=== PATIENT | male | born 1950 | race Caucasian/White ===

== ENCOUNTER 2017-06-29 22:14 | Emergency (ER) | payer OTHER ==
[2017-06-29 22:25] VITALS: BP 175/97; PULSE 95; TEMP 97.4; BMI 29.9
--- NOTE | 2017-06-30 00:26 | PDOC ---
History of Present Illness - General History Source: Patient Exam Limitations: No Limitations - History of Present Illness Initial Comments: 06/30/17 00:41 The patient is a 67 year old male, with a significant past medical history of major depression (taking lexapro and klonopin), hypothyroidism (taking Synthroid ), and peripheral neuropathy, who presents to the emergency department with decreased urinary frequency since March with sudden onset of high blood pressure, palpitations, rapid breathing, and body shakes earlier this evening. The patient states he had a UTI in March, originally prescribed ciprofloxacin which was reportedly changes to ciprofloxacin by the time he arrived at the pharmacy because the first interacts with some of my daily medications. The patient states he took the course of antibiotics, however, never felt like the UTI went away. He states he has been urinating significantly less than normal since the UTI onset. The patients at bedside states the patient googled his symptoms earlier this evening and developed his rapid breathing, shaking, and palpitations. The patient denies chest pain, shortness of breath, headache and dizziness. The patient denies fever, chills, nausea, vomit, diarrhea and constipation. The patient denies dysuria, urgency and hematuria. Allergies: penicillins, scopolamine, vancomycin <Mary Mills - Last Filed: 06/30/17 00:41> <Gail Lopez - Last Filed: 06/30/17 03:13> - General Chief Complaint: Respiratory Stated Complaint: PAIN Time Seen by Provider: 06/29/17 23:46 Past History <Mary Mills - Last Filed: 06/30/17 00:41> - Past Medical History COPD: No Hypercholesterolemia: Yes Other medical history: Peripheral neuropathy - Suicide/Smoking/Psychosocial Hx Smoking History: Never smoked Have you smoked in the past 12 months: No Information on smoking cessation initiated: No Hx Alcohol Use: No Drug/Substance Use Hx: No Substance Use Type: None <Gail Lopez - Last Filed: 06/30/17 03:13> - Past Medical History Allergies/Adverse Reactions: Allergies Allergy/AdvReac Type Severity Reaction Status Date / Time Penicillins Allergy Severe Hives Verified 06/29/17 22:21 scopolamine Allergy Severe Hives Verified 06/29/17 22:21 vancomycin Allergy Severe Hives Verified 06/29/17 22:26 Home Medications: Ambulatory Orders Lidocaine 2% Viscous Oral/Top [Xylocaine 2% Viscous] 10 ml MM ONCE PRN #1 bottle 06/30/17 Sulfamethoxazole/Trimethoprim [Bactrim Ds Tablet] 1 each PO BID #10 tablet 06/30 Review of Systems - Review of Systems Able to Perform ROS?: Yes Comments:: 06/30/17 00:42 CONSTITUTIONAL: Absent: fever, chills, diaphoresis, generalized weakness, malaise, loss of appetite HEENT: Absent: rhinorrhea, nasal congestion, throat pain, throat swelling, difficulty swallowing, mouth swelling, ear pain, eye pain, visual Changes CARDIOVASCULAR: (+) palpitations, Absent: chest pain, syncope, irregular heart rate, lightheadedness, peripheral edema RESPIRATORY: (+) rapid breathing. Absent: cough, dyspnea with exertion, orthopnea, wheezing, stridor, hemoptysis GASTROINTESTINAL: Absent: abdominal pain, abdominal distension, nausea, vomiting, diarrhea, constipation, melena, hematochezia GENITOURINARY: (+) decreased urinary frequency, Absent: dysuria, urgency, hesitancy, hematuria , flank pain, genital pain MUSCULOSKELETAL: (+) body shaking. Absent: myalgia, arthralgia, joint swelling SKIN: Absent: rash, itching, pallor HEMATOLOGIC/IMMUNOLOGIC: Absent: easy bleeding, easy bruising, lymphadenopathy, frequent infections ENDOCRINE: Absent: unexplained weight gain, unexplained weight loss, heat intolerance, cold intolerance NEUROLOGIC: Absent: headache, focal weakness or paresthesias, dizziness, unsteady gait, seizure, mental status changes, bladder or bowel incontinence PSYCHIATRIC: Absent: anxiety, depression, suicidal or homicidal ideation, hallucinations. <Mary Mills - Last Filed: 06/30/17 00:41> *Physical Exam - Vital Signs Last Vital Signs Temp Pulse Resp BP Pulse Ox 97.4 F L 95 H 18 175/97 98 06/29/17 22:22 06/29/17 22:22 06/29/17 22:22 06/29/17 22:22 06/29/17 22:22 - Physical Exam Comments: 06/30/17 00:44 GENERAL: Well developed, well nourished. Awake and alert. No acute distress. HEENT: Normocephalic, atraumatic. PERRLA, EOMI. No conjunctival pallor. Sclera are non- icteric. Moist mucous membranes. Oropharynx is clear. NECK: Supple. Full ROM. No JVD. Carotid pulses 2+ and symmetric, without bruits. No thyromegaly. No lymphadenopathy. CARDIOVASCULAR: Regular rate and rhythm. No murmurs, rubs, or gallops. Distal pulses are 2+ and symmetric. PULMONARY: No evidence of respiratory distress. Lungs clear to auscultation bilaterally. No wheezing, rales or rhonchi. ABDOMINAL: Soft. Non-tender. Non-distended. No rebound or guarding. No organomegaly. Normoactive bowel sounds. MUSCULOSKELETAL Normal range of motion at all joints. No bony deformities or tenderness. No CVA tenderness. EXTREMITIES: No cyanosis. No clubbing. No edema. No calf tenderness. SKIN: Warm and dry. Normal capillary refill. No rashes. No jaundice. NEUROLOGICAL: Alert, awake, appropriate. Cranial nerves 2-12 intact. Normoreflexic in the upper and lower extremities. Normal speech. Toes are down-going bilaterally. Gait is normal without ataxia. PSYCHIATRIC: Cooperative. Good eye contact. Appropriate mood and affect. <Mary Mills - Last Filed: 06/30/17 00:41> - Vital Signs Last Vital Signs Temp Pulse Resp BP Pulse Ox 97.4 F L 95 H 18 175/97 98 06/29/17 22:22 06/29/17 22:22 06/29/17 22:22 06/29/17 22:22 06/29/17 22:22 <Gail Lopez - Last Filed: 06/30/17 03:13> ED Treatment Course - LABORATORY CBC & Chemistry Diagram: 06/30/17 00:37 06/30/17 00:37 <Gail Lopez - Last Filed: 06/30/17 03:13> Medical Decision Making - Medical Decision Making 06/30/17 02:21 67 yo male experienced some shaking earlier today and googled it and found it could be related to sepsis. He has had UTI in the past and he feels he may have one at this time PMH peripheral neuropathy ,major depression NO FEVER ,CHILLS,VOMTING ,NO CHEST PAIN ,NO COUGH OR ABD PAIN cbc wnl chemistries htb=584 ekg nsr @ 76 bpm UA pending <Gail Lopez - Last Filed: 06/30/17 03:13> *DC/Admit/Observation/Transfer - Attestations Scribe Attestion: 06/30/17 00:44 Documentation prepared by Mary Mills, acting as medical artist for Gail Lopez MD <Mary Mills - Last Filed: 06/30/17 00:41> <Gail Lopez - Last Filed: 06/30/17 03:13> Diagnosis at time of Disposition: Urinary dribbling Peripheral neuropathy Qualifiers: Peripheral neuropathy type: polyneuropathy, unspecified Qualified Code(s): G62.9 - Polyneuropathy, unspecified UTI (urinary tract infection) Qualifiers: Urinary tract infection type: site unspecified Hematuria presence: without hematuria Qualified Code(s): N39.0 - Urinary tract infection, site not specified - Discharge Dispostion Disposition: HOME Condition at time of disposition: Stable - Prescriptions Prescriptions: Lidocaine 2% Viscous Oral/Top [Xylocaine 2% Viscous] 10 ml MM ONCE PRN #1 bottle PRN Reason: oral ULCERS Sulfamethoxazole/Trimethoprim [Bactrim Ds Tablet] 1 each PO BID #10 tablet - Referrals Referrals: Juan David Leong [Primary Care Provider] - - Patient Instructions Printed Discharge Instructions: DI for Urinary Tract Infection (UTI) Additional Instructions: please follow up with your regular physician melter supervisor your prescriptions at your pharmacy - Post Discharge Activity
[2017-06-30 00:53] LABS: BASO % 0.3 % (0-2.0); EOS % 0.9 % (0-4.5); HEMATOCRIT 38.5 % (35.4-49); HEMOGLOBIN 13.1 GM/dL (11.7-16.9); LYMPH % 25.4 % (8-40); MCH 29.9 pg (25.7-33.7); MCHC 33.9 g/dl (32.0-35.9); MEAN CELL VOLUME 88.2 fl (80-96); MEAN PLT VOLUME 8.3 fl (7.5-11.1); MONO % 7.8 % (3.8-10.2); NEUT % 65.6 % (42.8-82.8); PLATELET COUNT 251 K/MM3 (134-434); RBC 4.37 M/mm3 (4.00-5.60); WHITE BLOOD COUNT 8.4 K/mm3 (4.0-10.0)
[2017-06-30 01:23] LABS: ALBUMIN 3.8 g/dl (3.4-5.0); ALK PHOS 41 U/L (45-117); ANION GAP 8 (8-16); BILIRUBIN,TOTAL 0.3 mg/dL (0.2-1.0); BLOOD UREA NITROGEN 18 mg/dL (7-18); CALCIUM 9.2 mg/dL (8.5-10.1); CHLORIDE 109 mmol/L (98-107); CO2 24 mmol/L (21-32); CREATININE 1.4 mg/dL (0.7-1.3); GLUCOSE,RANDOM 116 mg/dL (74-106); POTASSIUM 3.9 mmol/L (3.5-5.1); SGOT/AST 29 U/L (15-37); SGPT/ALT 33 U/L (12-78); SODIUM 141 mmol/L (136-145); TOT PROT 9.6 g/dl (6.4-8.2)
[2017-06-30 02:58] LABS: URINE APPEARANCE SLCLOUDY; URINE BILIRUBIN NEGATIVE (NEGATIVE); URINE BLOOD NEGATIVE (NEGATIVE); URINE COLOR DKYELLOW; URINE GLUCOSE (UA) NEGATIVE (NEGATIVE); URINE KETONE NEGATIVE (NEGATIVE); URINE LEUK ESTERASE TRACE (NEGATIVE); URINE NITRITE NEGATIVE (NEGATIVE); URINE UROBILINOGEN NEGATIVE mg/dL (0.2-1.0)
[2017-06-30 02:59] LABS: URINE PROTEIN 1+ (NEGATIVE)
[2017-06-30 03:06] LABS: URINE BACTERIA RARE /hpf (NONE SEEN); URINE HYALINE CAST 1 /lpf; URINE MUCUS MODERATE
--- NOTE | 2017-06-30 11:06 | EKG ---
Test Reason : Blood Pressure : / mmHG Vent. Rate : 076 BPM Atrial Rate : 076 BPM P-R Int : 164 ms QRS Dur : 112 ms QT Int : 398 ms P-R-T Axes : 049 034 035 degrees QTc Int : 447 ms POOR DATA QUALITY, INTERPRETATION MAY BE ADVERSELY AFFECTED NORMAL SINUS RHYTHM WITH SINUS ARRHYTHMIA NORMAL ECG NO PREVIOUS ECGS AVAILABLE Confirmed by REBEKAH STOUT MD ([id number]) on 06/30/2017 11:06:29 AM Referred By: Confirmed By:REBEKAH STOUT MD
== END 2017-06-30 03:31 | disposition home or self-care (01) ==
LOC: JER 22:14
DX: N39.0 Urinary tract infection, site not specified (principal); N39.43 Post-void dribbling; G62.9 Polyneuropathy, unspecified; F33.9 Major depressive disorder, recurrent, unspecified; E03.9 Hypothyroidism, unspecified
CPT/HCPCS: 36415; 80053; 81003; 81015; 82550; 82553; 84484; 85025; 87086; 93005; 93010; 99281-25